=== PATIENT | female | born 1945 | race Two or more races ===

== ENCOUNTER → 2021-05-03 | Outpatient (CLI) | payer MEDICARE, MEDICAID ==
[~2021-05-03] MED LIST: ATOR10TA52 PO; BUPIVACAINE HCL 0.25% P/F 10 ML VIAL ONE; CARI-277 PO; DEXL60CA4 PO; DICY20TA PO; ELUX1TAB2 PO; ESCI-28 PO; FLUT1SPR5; FURO40TA4 PO; GABA1TAB PO; GABA300C10 PO; IOHEXOL 300 MG/ML 100ML BOTTLE IJ ONE; LEVO50TA7; LIDO5CRE14 EX; LIDOCAINE 2%HCL (LOCAL ANESTH.) INJ 20ML MDV ONE; LORA1TAB23 PO; MEMA5TAB2 PO; PERCOT PO; PRIM50TA27 PO; QUET50TA27 PO; SOLI5TAB7 PO; TOPI50TA53 PO; TRAZ1TAB12 PO; ZOLP5TAB PO; methylPREDNISolone ACETATE 80 MG/ML VL ONE
== END | disposition home or self-care (01) ==
LOC: XY 12:42
PROVIDERS: ATTEND Orthopaedic Surgery Sports Medicine
DX: M25.551 Pain in right hip (principal); J44.9 Chronic obstructive pulmonary disease, unspecified; F32.9 Major depressive disorder, single episode, unspecified; Z80.1 Family history of malignant neoplasm of trachea, bronchus and lung; Z82.5 Family history of asthma and other chronic lower respiratory diseases
CPT/HCPCS: 20610; 73501; 77002; A4223; J1040; J3490; Q9967

== ENCOUNTER → 2021-11-13 | Outpatient (CLI) | payer MEDICARE, MEDICAID ==
[~2021-11-13] MED LIST changes: +EZ-GAS II GRANULES (RADIOLOGY USE) PO ONE; +LIDOCAINE 2% (LOCAL ANESTH.) PF 5ml SDV ONE; -LIDOCAINE 2%HCL (LOCAL ANESTH.) INJ 20ML MDV ONE
== END | disposition home or self-care (01) ==
LOC: XYW 12:44
PROVIDERS: ATTEND Orthopaedic Surgery Sports Medicine
DX: M25.552 Pain in left hip (principal); J44.9 Chronic obstructive pulmonary disease, unspecified; F32.A Depression, unspecified; Z90.710 Acquired absence of both cervix and uterus; Z98.891 History of uterine scar from previous surgery; Z80.1 Family history of malignant neoplasm of trachea, bronchus and lung; Z80.0 Family history of malignant neoplasm of digestive organs; Z82.5 Family history of asthma and other chronic lower respiratory diseases
CPT/HCPCS: 20610; 73501; J1040; J2001; J3490; Q9967; 76000